=== PATIENT | male | born 1960 | race Caucasian/White ===

== ENCOUNTER 2024-08-02 04:28 | Day surgery (SDC) | payer BC ==
[2024-07-31 10:35] VITALS: BMI 25.8
[2024-08-02] MEDS ORDERED: BUPIVACAINE HCL/PF 0.5% (5MG/ML) 10 ML VIAL ONE (07:35)
[2024-08-02] MEDS ORDERED: LIDOCAINE HCL/PF 1% SDV 5ML VIAL ONE (07:35)
[2024-08-02] MEDS ORDERED: BUPIVACAINE HCL/PF 0.25% (2.5MG/ML) 10 ML VIAL ONE (07:35)
[2024-08-02] MEDS ORDERED: TRIAMCINOLONE ACET 40MG/1ML VIAL ONE (07:35)
[2024-08-02] MEDS ORDERED: ACETAMINOPHEN 500 MG TABLET (FP) PO PRN (08:54)
[2024-08-02] MEDS: LIDOCAINE HCL 1% PRESERVATIVE FREE - 30ML VIAL IJ ONE (14:26)
[2024-08-02] MEDS: IOHEXOL 180 MG/1 ML ML IJ ONE (14:31)
[2024-08-02] MEDS: DEXAMETHASONE SOD PHOSPHATE 10 MG/1 ML VIAL IM ONE (14:33)
[2024-08-02 15:59] VITALS: BP 125/78; PULSE 72; RESP 20; TEMP 97.3
== END 2024-08-02 14:55 | disposition home or self-care (01) ==
LOC: JASU-SURG 04:28
PROVIDERS: ATTEND Pain Medicine Pain Medicine
PROC: 3E0U3GC Introduction of Other Therapeutic Substance into Joints, Percutaneous Approach (ICD-10-PCS; principal; 2024-08-02 14:15)
DX: M47.816 Spondylosis without myelopathy or radiculopathy, lumbar region (principal); M54.16 Radiculopathy, lumbar region; M71.38 Other bursal cyst, other site
CPT/HCPCS: 76000-TC-FY; J1100

== ENCOUNTER 2024-08-31 04:19 | Day surgery (SDC) | payer BC ==
[2024-08-30 11:18] VITALS: BMI 25.8
[2024-08-31] MEDS ORDERED: ACETAMINOPHEN 500 MG TABLET (FP) PO PRN (08:41)
[2024-08-31] MEDS: LIDOCAINE 1% P/F 10 MG/ML VIAL INF ONE (09:50)
[2024-08-31] MEDS: IOHEXOL 180 MG/1 ML ML IJ ONE (09:52)
[2024-08-31] MEDS: DEXAMETHASONE SOD PHOSPHATE 10 MG/1 ML VIAL IVPUSH ONE (09:53)
[2024-08-31 09:59] VITALS: RESP 18
[2024-08-31 11:34] VITALS: BP 118/71; PULSE 57; TEMP 98.7
== END 2024-08-31 10:21 | disposition home or self-care (01) ==
LOC: JASU-SURG 04:19
PROVIDERS: ATTEND Pain Medicine Pain Medicine
PROC: 3E0R3BZ Introduction of Anesthetic Agent into Spinal Canal, Percutaneous Approach (ICD-10-PCS; 2024-08-31)
PROC: 3E0R33Z Introduction of Anti-inflammatory into Spinal Canal, Percutaneous Approach (ICD-10-PCS; principal; 2024-08-31 10:00)
DX: M54.16 Radiculopathy, lumbar region (principal)
CPT/HCPCS: 76000-TC-FY; J1100